=== PATIENT | male | born 1985 | race Two or more races ===

== ENCOUNTER 2016-03-21 09:59 | Emergency (ER) | payer OTHER ==
[2016-03-21 10:20] VITALS: BP 131/85
[2016-03-21] MEDS ORDERED: Proparacaine 0.5% OPHTH.SOL* 15 ML BTL ONE (10:28)
[2016-03-21] MEDS ORDERED: BSS OPTH.SOL* BTL ONE (10:28)
[2016-03-21] MEDS ORDERED: Fluorescein Sodium TOPICAL* 1 MG TEST ONE (10:28)
--- NOTE | 2016-03-21 10:40 | UC ---
Eye Complaint HPI - HPI Summary HPI Summary: LEFT EYE IRRITATION X 4 DAYS. THINKS HE SCRATCHED HIS EYE TRYING TI GET AN EYELASH OUT. NO PAIN WITH EOM. NO NAUSEA, PICHARDO, PHOTOPHOBIA OR VISUAL DISTURBANCE. NO DRAINAGE. - History of Current Complaint Chief Complaint: UCEye Stated Complaint: EYE COMPLAINT Time Seen by Provider: 03/21/16 10:22 Hx Obtained From: Patient Onset/Duration: Gradual Onset, Lasting Days, Still Present Timing: Constant Severity Initially: Moderate Severity Currently: Moderate Pain Intensity: 4 Pain Scale Used: 0-10 Numeric Location of Injury: Conjunctiva Character: Sharp Aggravating Factor(s): Blinking Alleviating Factor(s): Nothing Associated Signs And Symptoms: Negative: Photophobia, Drainage (Purulent), Vision Impairment Bilateral, Vision Impairment Right, Vision Impairment Left, Fever - Allergies/Home Medications Allergies/Adverse Reactions: Allergies Allergy/AdvReac Type Severity Reaction Status Date / Time Sulfa Drugs Allergy Rash And Verified 03/21/16 10:10 Itching PMH/Surg Hx/FS Hx/Imm Hx Previously Healthy: Yes Endocrine History Of: Denies: Diabetes, Thyroid Disease Cardiovascular History Of: Denies: Cardiac Disorders, Hypertension, Pacemaker/ICD Respiratory History Of: Denies: COPD, Asthma GI/ History Of: Denies: Gastroesophageal Reflux, Renal Disease Neurological History Of: Denies: CVA, Dementia, Seizures Other History Of: Negative For: Anticoagulant Therapy - Surgical History Surgical History: None - Family History Known Family History: Positive: Other - MIGRAINE - MOM Negative: Hypertension - Social History Alcohol Use: None Substance Use Type: None Smoking Status (MU): Never Smoked Tobacco Review of Systems Constitutional: Negative Eyes: Eye Redness Respiratory: Negative Cardiovascular: Negative Gastrointestinal: Negative Neurological: Negative All Other Systems Reviewed And Are Negative: Yes Physical Exam Triage Information Reviewed: Yes Appearance: Well-Appearing, No Pain Distress, Well-Nourished Vital Signs: Initial Vital Signs Temp 98.5 F 03/21/16 10:10 Pulse 75 03/21/16 10:10 Resp 18 03/21/16 10:10 BP 131/85 03/21/16 10:10 Pulse Ox 100 03/21/16 10:10 Vital Signs Reviewed: Yes Eyes: Positive: Conjunctiva Clear, Other: - FLUORESCEIN UPTAKE LOWER SCLERAL CONJUNCTIVA. NO CORNEAL UPTAKE. Negative: Discharge ENT: Positive: Hearing grossly normal Neck: Positive: Supple Respiratory: Positive: No respiratory distress, No accessory muscle use Cardiovascular: Positive: Pulses Normal Abdomen Description: Positive: Soft Musculoskeletal: Positive: No Edema Neurological: Positive: Alert Psychological: Positive: Age Appropriate Behavior Skin: Negative: rashes Eye Complaint Course/Dx - Differential Dx/Diagnosis Provider Diagnoses: LEFT EYE CONJUNCTIVAL ABRASION Discharge - Discharge Plan Condition: Stable Disposition: HOME Prescriptions: Erythromycin OPHTH.OINT* [Ilotycin OPHTH.OINT*] 1 applic LEFT EYE QID #1 tube Patient Education Materials: Eye Pain (ED) Referrals: Rojas Barrera MD [Medical Doctor] - If Needed Additional Instructions: CONJUNCTIVAL ABRASION Conjunctival abrasions occur from blunt injuries and mild chemical or thermal estrada and present as an irregularity of the epithelial surface of the conjunctiva, best seen using fluorescein stain and a cobalt blue light. Regions of denuded epithelium will appear green. Corneal abrasions are also frequently present. Isolated conjunctival abrasions are treated with antibiotic ointment applied four times daily for one week. Referral to an multimedia authoring specialist for a complete eye examination within one to three days of injury is a reasonable precaution in these patients if all symptoms have not resolved and in contact wearers. These injuries typically heal within two to three days. Patients with an isolated conjunctival injury typically recover fully without any vision loss Don't drive or operate machinery until you have the use of both your eyes. The abrasion usually is healed in one or two days. A follow-up examination to confirm healing is recommended. Call the doctor or return at once if you develop severe pain, decreasing vision, eye swelling, or purulent drainage. FOLLOW-UP WITH EYE DOCTOR IF YOU DEVELOP PAIN WITH EYE MOVEMENT, FOREIGN BODY SENSATION, PURULENT DRAINAGE, SENSITIVITY TO LIGHT, FEVER, VISUAL DISTURBANCE OR ANY OTHER CONCERNING SYMPTOMS.
== END 2016-03-21 11:03 | disposition home or self-care (01) ==
LOC: UCEAST 09:59
DX: S05.02XA Injury of conjunctiva and corneal abrasion without foreign body, left eye, initial encounter (principal); X58.XXXA Exposure to other specified factors, initial encounter; Y93.9 Activity, unspecified
CPT/HCPCS: 99212; A9270-GY; G0463